=== PATIENT | female | born 1985 | race Caucasian/White ===

== ENCOUNTER → 2016-10-09 | Outpatient (CLI) | payer OTHER ==
[~2016-10-09] MED LIST: BIRTH CONTROL PILLS PO; HYDR-3240 PO; OXYC-302 PO; PARO20TA55 PO
== END | disposition home or self-care (01) ==
LOC: STAR 14:32
PROVIDERS: ATTEND Obstetrics & Gynecology
DX: Z01.818 Encounter for other preprocedural examination (principal); N94.6 Dysmenorrhea, unspecified; N80.9 Endometriosis, unspecified
CPT/HCPCS: 36415; 84703; 85025

== ENCOUNTER 2016-10-15 05:49 | Day surgery (SDC) | payer OTHER ==
[2016-10-09 15:39] VITALS: BP 111/69
[~2016-10-15] VITALS: Ht 167.6 cm; Wt 70.0 kg
[2016-10-15] MEDS ORDERED: LIDOCAINE 1%, 2ML SQ PRN (06:30)
[2016-10-15] MEDS ORDERED: LACTATED RINGERS 1,000 ML IV SCH (06:30)
[2016-10-15] MEDS ORDERED: LIDOCAINE 1%, 2ML ONE (06:33)
[2016-10-15 06:44] LABS: HCG UR OBC PASS
[2016-10-15] MEDS ORDERED: MIDAZOLAM 1 MG/ML, 2ML ONE (07:10)
[2016-10-15] MEDS ORDERED: FENTANYL PF 250 MCG/5ML ONE (07:10)
[2016-10-15] MEDS ORDERED: BUPIVACAINE/PF 0.25% ONE (07:11)
[2016-10-15] MEDS ORDERED: ESTROGENS CONJUGATED VAG CRM 0.625MG/1G, 30GM ONE (07:11)
[2016-10-15] MEDS ORDERED: EPINEPHRINE 1 MG/ML, 1ML ONE (07:11)
[2016-10-15] MEDS ORDERED: FLUORESCEIN SODIUM 500 MG/5 ML ONE (07:11)
[2016-10-15] MEDS ORDERED: KETOROLAC 30 MG/1 ML ONE (07:33)
[2016-10-15] MEDS ORDERED: DEXAMETHASONE 4 MG/ML, 1ML ONE (07:33)
[2016-10-15] MEDS ORDERED: CEFAZOLIN 1,000 MG ONE (07:33)
[2016-10-15] MEDS ORDERED: NEOSTIGMINE 1 MG/ML, 10ML ONE (07:33)
[2016-10-15] MEDS ORDERED: ONDANSETRON 2MG/ML, 2ML ONE (07:33)
[2016-10-15] MEDS ORDERED: ROCURONIUM 10 MG/ML ONE (07:33)
[2016-10-15] MEDS ORDERED: PROPOFOL 10 MG/ML, 50ML ONE (07:33)
[2016-10-15] MEDS ORDERED: PROPOFOL 10 MG/ML, 20ML ONE (07:33)
[2016-10-15] MEDS ORDERED: GLYCOPYRROLATE 0.2MG/1ML ONE (07:33)
[2016-10-15] MEDS ORDERED: BUPIVACAINE/PF 0.25% INFIL ONE (08:08)
[2016-10-15] MEDS ORDERED: EPINEPHRINE 1 MG/ML, 1ML INFIL ONE (08:09)
[2016-10-15] MEDS ORDERED: FENTANYL PF 100 MCG/2ML IV PRN (08:30)
[2016-10-15] MEDS ORDERED: PROMETHAZINE 25 MG/ML, 1ML IV PRN (08:30)
[2016-10-15] MEDS ORDERED: ACETAMINOPHEN 325 MG TABLET PO PRN ×2 (08:30→13:30)
[2016-10-15] MEDS ORDERED: OXYcodone 5 MG/5 ML ORAL.SOL UDC PO PRN (08:30)
[2016-10-15] MEDS ORDERED: MEPERIDINE/PF 25MG/0.5ML IVPush PRN (08:30)
[2016-10-15] MEDS ORDERED: PROMETHAZINE 25 MG/ML, 1ML ONE (09:12)
[2016-10-15] MEDS ORDERED: FENTANYL PF 100 MCG/2ML ONE (09:18)
[2016-10-15] MEDS ORDERED: HYDROmorphone 1 MG/ML, 1ML ONE (09:18)
[2016-10-15] MEDS ORDERED: ACETAMINOPHEN 650 MG/20.3 ML UDC ONE (09:33)
[2016-10-15] MEDS ORDERED: OXYcodone 5 MG/5 ML ORAL.SOL UDC ONE (09:34)
[2016-10-15] MEDS ORDERED: D5%-LACTATED RINGERS 1,000 ML IV SCH (13:14)
[2016-10-15] MEDS ORDERED: OXYcodone/APAP 5/325MG TABLET ONE (13:29)
[2016-10-15] MEDS ORDERED: OXYcodone/APAP 5/325MG TABLET PO PRN (13:30)
[2016-10-15] MEDS ORDERED: ZOLPIDEM 5MG TABLET PO PRN (13:30)
[2016-10-15] MEDS ORDERED: ONDANSETRON 2MG/ML, 2ML IVPush PRN (13:30)
[2016-10-15] MEDS ORDERED: KETOROLAC 30 MG/1 ML IVPush PRN (13:30)
[2016-10-15] MEDS ORDERED: SENNA/DOCUSATE TABLET PO SCH (13:30)
[2016-10-15] MEDS ORDERED: BISACODYL 10 MG SUPP PR PRN (13:30)
[2016-10-15] MEDS ORDERED: IBUPROFEN 600 MG TABLET PO SCH (16:00)
[2016-10-15] MEDS ORDERED: SIMETHICONE 80 MG CHEW TAB PO SCH (16:00)
[2016-10-15] MEDS ORDERED: DOCUSATE 100 MG CAPSULE PO SCH (21:00)
== END 2016-10-15 15:53 | disposition home or self-care (01) ==
LOC: OR 05:49
PROVIDERS: ATTEND Obstetrics & Gynecology
DX: N94.6 Dysmenorrhea, unspecified (principal); N80.9 Endometriosis, unspecified; E78.5 Hyperlipidemia, unspecified; F17.210 Nicotine dependence, cigarettes, uncomplicated; G89.29 Other chronic pain; Z90.49 Acquired absence of other specified parts of digestive tract; Z98.890 Other specified postprocedural states; Z82.49 Family history of ischemic heart disease and other diseases of the circulatory system; Z72.0 Tobacco use; Z88.6 Allergy status to analgesic agent
CPT/HCPCS: 36415; 52000; 58552; 81025; 85025; 88307; J0171; J0690; J1100; J1885; J2250; J2405; J2550; J2704; J2710; J3010; J3490; J7120